=== PATIENT | female | born 1970 | race Caucasian/White ===

== ENCOUNTER → 2020-10-20 | Outpatient (CLI) | payer OTHER | LOC: US 09:18 | DX: D11.0 Benign neoplasm of parotid gland (principal) ==

== ENCOUNTER → 2021-09-21 | Outpatient (CLI) | payer OTHER | LOC: KOH-I 14:55 | DX: M16.12 Unilateral primary osteoarthritis, left hip (principal) | CPT/HCPCS: 73502 ==